=== PATIENT | male | born 1980 | race African-American/Black ===

== ENCOUNTER 2020-03-24 22:01 | Emergency (ER) | payer SELFPAY ==
[~2020-03-24] VITALS: Ht 167.6 cm; Wt 108.9 kg
--- NOTE | 2020-03-24 22:36 | Emergency Department Note ---
History of Present Illnes History of Present Illness Chief Complaint: left back and left flank pain History of Present Illness This is a 39 year old male, with history of hypertension and NIDDM, who presents with 5 day history of left low back and left flank pain. Patient states the pain is constant, the symptoms comes in waves where it is more intense, it is localized in the left low back and radiates to the left flank. He has not noted any blood in his urine, and he has a remote history of kidney stones. He works as a truck trailer mechanic, and cannot recall any specific injury to his back. There is no radiation the pain into the buttocks or legs. He denies any nausea, tingling diarrhea, fever, chills, or myalgias. Movement makes the pain somewhat worse. Last vomiting was yesterday, and he describes as normal. Patient's blood pressures elevated upon arrival, and he admits to not taking any of his medications at least for today. He denies any headache, dizziness, visual changes, chest pain, or shortness of breath. Historian: Patient Arrival Mode: Car Change Management Consultant Required: No Onset (how long ago): day(s) (5) Location: left low back and left flank Quality: achy, sharp, stabbing Severity: moderate Onset quality: sudden Duration (how long): day(s) (5) Timing of current episode: constant Progression: worsening Chronicity: new Context: Denies recent illness, Denies recent surgery, Denies trauma/injury Relieving factors: none Exacerbating factors: movement Associated symptoms: Reports denies other symptoms; Denies chest pain, Denies cough, Denies fever/chills, Denies nausea/vomiting, Denies shortness of breath Past Medical/Family History Physician Review I have reviewed the patient's past medical and family history. Any updates have been documented here. Past Medical History Recent Fever: No Clinical Suspicion of Infectio: No New/Unexplained Change in Ment: No Past Medical History: Hypertension, Diabetes (NIDDM) Past Surgical History: None Social History Smoking Cessation: Never Smoker Alcohol Use: None Any Illegal Drug Use: No TB Exposure/Symptoms: No Physically hurt or threatened: No Family History Family history of heart diseas: No Other Last Tetanus: unknown Any Pre-Existing Lines (PICC,: No Is patient up to date on immun: No Review of Systems Review of Systems Constitutional: Reports no symptoms, Reports as per HPI; Denies chills, Denies fever, Denies malaise EENTM: Reports no symptoms Cardiovascular: Denies chest pain, Denies palpitations Respiratory: Reports no symptoms; Denies cough, Denies pain on inspiration, Denies pain with cough Gastrointestinal: Reports abdominal pain (left fank); Denies constipation, Denies diarrhea, Denies nausea, Denies vomiting Genitourinary: Denies discharge, Denies dysuria, Denies frequency Musculoskeletal: Reports back pain (left low back) Integumentary: Reports no symptoms Neurological: Denies numbness, Denies paresthesia, Denies tingling Psychological: Reports no symptoms Review of other systems: All other systems negative Physical Exam Related Data Vital signs reviewed: Yes Physical Exam CONSTITUTIONAL Constitutional: Present well-developed, Present well-nourished; Absent distressed, Absent ill appearing HENT HENT: Present normocephalic, Present atraumatic, Present oropharynx clear/moist, Present nose normal HENT L/R: Present left ext ear normal, Present right ext ear normal EYES Eyes: Reports PERRL, Reports conjunctivae normal NECK Neck: Present ROM normal PULMONARY Pulmonary: Present effort normal, Present breath sounds normal CARDIOVASCULAR Cardiovascular: Present regular rhythm, Present heart sounds normal, Present capillary refill normal, Present normal rate GASTROINTESTINAL Abdominal: Present soft, Present nontender, Present bowel sounds normal GENITOURINARY Genitourinary: Present exam deferred SKIN Skin: Present warm, Present dry; Absent rash MUSCULOSKELETAL Musculoskeletal: Present ROM normal NEUROLOGICAL Neurological: Present alert, Present oriented x 3, Present no gross motor or sensory deficits PSYCHOLOGICAL Psychological: Present mood/affect normal, Present judgement normal Results Laboratory Laboratory CBC - nl CMP - Gluc - 233, CK = 545; Liver profile - normal; Lab results reviewed: Yes Imaging Imaging results reviewed: Yes Impressions [place] [id number] Patient Name: RHETT FIGUEROA MR #: [id number] : 1980 Age/Sex: 39/M Req #: [id number] Adm Physician: Ordered by: KERMIT SIMMS MD Report #: [id number] Location: [facility] Room/Bed: Procedure: [id number] HOPD/CT ABD/PEL WO CONTRAST-HOPD Exam Date: 03/25/20 Exam Time: 34 REPORT STATUS: Signed EXAM: CT Abdomen and Pelvis WITHOUT contrast INDICATION: Left flank pain COMPARISON: None. TECHNIQUE: Abdomen and pelvis were scanned utilizing a multidetector helical scanner from the lung base to the pubic symphysis without administration of IV contrast. Absence of intravenous contrast decreases sensitivity for detection of focal lesions and vascular pathology. Coronal and sagittal reformations were obtained. Routine protocol was performed. IV CONTRAST: None ORAL CONTRAST: None COMPLICATIONS: None RADIATION DOSE: Total DLP: 1196 mGy*cm Estimated effective dose: (DLP x 0.015 x size factor) mSv CTDIvol has been reviewed. It is below the limits set by the Radiation Protocol Committee (RPC). Dose modulation, iterative reconstruction, and/or weight based adjustment of the mA/kV was utilized to reduce the radiation dose to as low as reasonably achievable. FINDINGS: LINES and TUBES: None. LOWER THORAX: Unremarkable HEPATOBILIARY: No focal hepatic lesions. No biliary ductal dilation. GALLBLADDER: No radio-opaque stones or sludge. No wall thickening. SPLEEN: No splenomegaly. PANCREAS: No focal masses or ductal dilatation. ADRENALS: No adrenal nodules KIDNEYS/URETERS: Mild bilateral perinephric fat stranding. No hydronephrosis. No cystic or solid mass lesions. No stones. GI TRACT: No abnormal distention, wall thickening, or evidence of bowel obstruction. Appendix is normal. PELVIC ORGANS/BLADDER: Unremarkable. LYMPH NODES: No lymphadenopathy. VESSELS: Unremarkable. PERITONEUM / RETROPERITONEUM: No free air or fluid. BONES: Mild degenerative changes. SOFT TISSUES: Unremarkable. IMPRESSION: Mild bilateral perinephric fat stranding can be seen with renal insufficiency, although pyelonephritis can generate this finding. Signed by: Andrzej Vee DO on 03/25/2020 1:12 AM Dictated By: ANDRZEJ VEE DO 1 Transcribed By: CHANG on 03/25/20111 COPY TO: KERMIT SIMMS MD~ Diagnostics Tests Diagnostic test(s) reviewed: Yes Assessment & Plan Medical Decision Making MDM - Drink plenty of fluids, especially water and Pedialyte. You need to aim for 1 gallon of water/day. - Take ALL antibiotics. - Follow-up with your PCP within 1 week, regarding this ER visit, to re- evaluate pain and make sure that your blood pressure is controlled. - TAKE YOUR BLOOD PRESSURE MEDICATION AND YOUR DIABETIC MEDICAITONS EVERY DAY. IT IS NOT SAFE TO MISS DOSAGES. Assessment & Plan Final Impression: (1) Pyelonephritis (2) Lumbar back pain (3) Uncontrolled hypertension (4) Uncontrolled diabetes mellitus (5) Noncompliance w/medication treatment due to intermit use of medication Depart Disposition: HOME, SELF-CARE Medications in the ED D/C Medications: - Naproxen 500 mg bid, prn pain, #30 - Cefdinir 300 mg po bid x 10 days, #20. KERMIT SIMMS MD Mar 24, 2020 22:36
--- NOTE | 2020-03-24 23:31 | NUR ---
CALLED FOR PT FOR RM 5
[2020-03-25] MEDS ORDERED: SODIUM CHLORIDE 0.9% 1000ML 1,000 ML ONE (00:11)
[2020-03-25] MEDS ORDERED: SODIUM CHLORIDE 0.9% 1000ML 1,000 ML IV SCH (00:15)
--- NOTE | 2020-03-25 01:16 | Diagnostic Imaging Report ---
EXAM: CT Abdomen and Pelvis WITHOUT contrast INDICATION: Left flank pain COMPARISON: None. TECHNIQUE: Abdomen and pelvis were scanned utilizing a multidetector helical scanner from the lung base to the pubic symphysis without administration of IV contrast. Absence of intravenous contrast decreases sensitivity for detection of focal lesions and vascular pathology. Coronal and sagittal reformations were obtained. Routine protocol was performed. IV CONTRAST: None ORAL CONTRAST: None COMPLICATIONS: None RADIATION DOSE: Total DLP: 1196 mGy*cm Estimated effective dose: (DLP x 0.015 x size factor) mSv CTDIvol has been reviewed. It is below the limits set by the Radiation Protocol Committee (RPC). Dose modulation, iterative reconstruction, and/or weight based adjustment of the mA/kV was utilized to reduce the radiation dose to as low as reasonably achievable. FINDINGS: LINES and TUBES: None. LOWER THORAX: Unremarkable HEPATOBILIARY: No focal hepatic lesions. No biliary ductal dilation. GALLBLADDER: No radio-opaque stones or sludge. No wall thickening. SPLEEN: No splenomegaly. PANCREAS: No focal masses or ductal dilatation. ADRENALS: No adrenal nodules KIDNEYS/URETERS: Mild bilateral perinephric fat stranding. No hydronephrosis. No cystic or solid mass lesions. No stones. GI TRACT: No abnormal distention, wall thickening, or evidence of bowel obstruction. Appendix is normal. PELVIC ORGANS/BLADDER: Unremarkable. LYMPH NODES: No lymphadenopathy. VESSELS: Unremarkable. PERITONEUM / RETROPERITONEUM: No free air or fluid. BONES: Mild degenerative changes. SOFT TISSUES: Unremarkable. IMPRESSION: Mild bilateral perinephric fat stranding can be seen with renal insufficiency, although pyelonephritis can generate this finding. Signed by: Andrzej Vee DO on 03/25/2020 1:12 AM
[2020-03-25] MEDS ORDERED: KETOROLAC TROMETHAMINE 30 MG/ML VIAL IV STA (01:58)
[2020-03-25] MEDS ORDERED: CEFTRIAXONE SOD 1 GM/NS 50 ML 50 ML IV ONE ×2 (02:00→02:10)
[2020-03-25] MEDS ORDERED: KETOROLAC TROMETHAMINE 30 MG/ML VIAL ONE (02:09)
[2020-03-25 02:28] VITALS: BP 174/120
== END 2020-03-25 02:30 | disposition home or self-care (01) ==
LOC: FSED 23:36
DX: N12 Tubulo-interstitial nephritis, not specified as acute or chronic (principal); M54.5 Low back pain; R10.9 Unspecified abdominal pain; E11.65 Type 2 diabetes mellitus with hyperglycemia; I10 Essential (primary) hypertension; Z91.14 Patient's other noncompliance with medication regimen
CPT/HCPCS: 74176; 80048; 80076; 81003; 85025; 96365; 96374; 99284; J0696; J1885; J7030